=== PATIENT | male | born 1980 | race Caucasian/White ===

== ENCOUNTER 2021-12-22 09:19 | Emergency (ER) | payer OTHER ==
[~2021-12-22] VITALS: Ht 188 cm; Wt 133.8 kg
[2021-12-22 09:20] VITALS: BP_SYST 155
--- NOTE | 2021-12-22 09:20 | NUR ---
BROUGHT BACK TO BED #6 AND TRIAGED. REPORT GIVEN TO RAFI
--- NOTE | 2021-12-22 09:40 | NUR ---
DR STUBBS AT BEDSIDE FOR EVALUATION
--- NOTE | 2021-12-22 10:25 | NUR ---
Taken to Radiology for scheduled x-ray with stable vital signs.
--- NOTE | 2021-12-22 10:42 | NUR ---
Back from radiology with stable vital signs. Patient comfortable on room air.
[2021-12-22] MEDS ORDERED: NAPR-1172 PO (11:22)
[2021-12-22] MEDS ORDERED: CYCL10TA24 PO (11:22)
--- NOTE | 2021-12-22 11:51 | NUR ---
Patient given written and verbal discharge instructions and verbalizes understanding. ER MD discussed with patient the results and treatment provided. Patient in stable condition. ID arm band removed. Rx of Flexeril/ Naproxen given. Patient educated on pain management and to follow up with PMD. Pain Scale 2/10 . Opportunity for questions provided and answered. Medication side effect fact sheet provided.
[2021-12-22 11:52] VITALS: BP_SYST 132
--- NOTE | 2021-12-22 11:56 | NUR ---
Discharge instruction provided. Patient verbalized understanding regarding home medications. Accompanied patient ambulatory with stable vital signs to the hospital lobby.
== END 2021-12-22 11:52 | disposition home or self-care (01) ==
LOC: SED 09:19
DX: S16.1XXA Strain of muscle, fascia and tendon at neck level, initial encounter (principal); S39.012A Strain of muscle, fascia and tendon of lower back, initial encounter; V49.49XA Driver injured in collision with other motor vehicles in traffic accident, initial encounter; Y93.89 Activity, other specified; Y92.89 Other specified places as the place of occurrence of the external cause; Y99.8 Other external cause status
CPT/HCPCS: 72040-TC; 72100-TC; 73030; 99284